=== PATIENT | male | born 1945 | race Caucasian/White ===

== ENCOUNTER → 2018-04-21 14:02 | Outpatient (CLI) | payer MEDICARE, SELFPAY ==
[2018-04-21 14:50] LABS: Add Manual Diff / Slide Review NO; Basophils Percent Auto 0.7 % (0-2); Eosinophils Percent Auto 5.9 % (2-4); Hematocrit 44.6 % (41-53); Hemoglobin 14.9 g/dL (13.5-17.5); Lymphocytes Percent Auto 18.2 % (25-40); Mean Corpuscular HGB Conc 33.3 % (30-36); Monocytes Percent Auto 10.8 % (3-14); Neutrophils Absolute Auto 4200 /uL (3000-5900); Neutrophils Percent Auto 64.4 % (50-75); Platelet Count 193 X10^3/uL (150-400); Red Blood Cell Count 4.79 X10^6/uL (4.5-5.9); Red Cell Distribution Width 14.6 % (11.6-14.8); White Blood Cell Count 6.6 X10^3/uL (4.5-11.0)
[2018-04-21 15:02] LABS: Hemoglobin A1C% w Est Avg Glu 6.7 % (4.0-6.0)
[2018-04-21 15:09] LABS: Cholesterol 177 mg/dL (140-199); HDL Cholesterol 51 mg/dL (40-60); LDL Cholesterol Calculated 102 mg/dL (<100); Triglycerides 120 mg/dL (35-150)
== END ==
PROVIDERS: Visit Provider Internal Medicine
DX: E78.5 Hyperlipidemia, unspecified (principal); Z86.39 Personal history of other endocrine, nutritional and metabolic disease; I10 Essential (primary) hypertension; Z12.5 Encounter for screening for malignant neoplasm of prostate; N40.1 Benign prostatic hyperplasia with lower urinary tract symptoms
CPT/HCPCS: 36415; 80061; 83036; 84153; 85025

== ENCOUNTER → 2018-07-15 12:08 | Outpatient (CLI) | payer MEDICARE, SELFPAY ==
--- NOTE | 2018-07-15 12:11 | DI.RAD.S_ITS ---
PROCEDURE: XR ELBOW RT MIN 3V INDICATIONS: fall 2 wks ago, still has pain TECHNIQUE: 3 views of the elbow were acquired. COMPARISON: None. FINDINGS: Bones: No fractures or dislocations. 4 mm ossification with well corticated margins is noted in the elbow joint concerning for intra-articular loose body. No suspicious bony lesions. Soft tissues: No elbow joint effusion. No suspicious soft tissue calcifications. IMPRESSION: Macro fracture acute Dictated by: Jasmyne Zamudio MD, PhD on 07/15/2018 at 12:50 Approved by: Jasmyne Zamudio MD, PhD on 07/15/2018 at 12:51
== END ==
PROVIDERS: Visit Provider Physician Assistant
DX: M25.521 Pain in right elbow (principal)
CPT/HCPCS: 73080

== ENCOUNTER → 2019-03-28 11:40 | Outpatient (CLI) | payer MEDICARE, SELFPAY ==
[2019-03-28 12:36] LABS: Add Manual Diff / Slide Review NO; Basophils Absolute Auto 0 /uL (0-100); Basophils Percent Auto 0.4 % (0-2); Eosinophils Absolute Auto 300 /uL (0-450); Hematocrit 43.4 % (41-53); Hemoglobin 14.3 g/dL (13.5-17.5); Lymphocytes Absolute Auto 1000 /uL (1100-4500); Lymphocytes Percent Auto 15.4 % (25-40); Mean Corpuscular Hemoglobin 31.3 PG (26-34); Mean Corpuscular Volume 95.1 fL (80-100); Monocytes Absolute Auto 900 /uL (0-900); Monocytes Percent Auto 13.5 % (3-14); Neutrophils Absolute Auto 4200 /uL (1500-7000); Neutrophils Percent Auto 65.7 % (50-75); Platelet Count 166 X10^3/uL (150-400); Red Blood Cell Count 4.57 X10^6/uL (4.5-5.9); Red Cell Distribution Width 14.8 % (11.6-14.8); White Blood Cell Count 6.5 X10^3/uL (4.5-11.0)
[2019-03-28 12:48] LABS: Hemoglobin A1C% w Est Avg Glu 6.5 % (4.0-6.0)
[2019-03-28 13:05] LABS: Alanine Aminotransferase 15 IU/L (<50); Albumin 4.2 g/dL (3.5-5.0); Albumin Globulin Ratio 1.6 (1.0-2.8); Alkaline Phosphatase 74 U/L (38-126); Aspartate Aminotransferase 19 IU/L (17-59); Bilirubin Total 0.9 mg/dL (0.2-1.3); Blood Urea Nitrogen 18 mg/dL (9-20); Calcium 9.2 mg/dL (8.4-10.2); Carbon Dioxide 28 mmol/L (22-32); Chloride 106 mmol/L (98-107); Estimated Glomerular Filt Rate 59.2 mL/min (>60); Globulin 2.6 g/dL (1.7-4.1); Glucose 139 mg/dL (80-110); HEMOLYSIS < 15 (0-50); Potassium 4.8 mmol/L (3.4-5.1); Sodium 143 mmol/L (137-145); Total Protein 6.8 g/dL (6.3-8.2)
== END ==
PROVIDERS: Visit Provider Internal Medicine
DX: Z00.00 Encounter for general adult medical examination without abnormal findings (principal)
CPT/HCPCS: 36415; 80053; 83036; 85025

== ENCOUNTER → 2019-05-31 13:00 | Outpatient (CLI) | payer MEDICARE, SELFPAY | PROVIDERS: Visit Provider Urology | DX: Z12.5 Encounter for screening for malignant neoplasm of prostate (principal); N40.1 Benign prostatic hyperplasia with lower urinary tract symptoms | CPT/HCPCS: 36415; 84153 ==

== ENCOUNTER → 2021-06-05 09:44 | Outpatient (CLI) | payer MEDICARE, SELFPAY ==
--- NOTE | 2021-06-05 09:47 | DI.RAD.S_ITS ---
PROCEDURE: XR CHEST 2V INDICATIONS: cough TECHNIQUE: 2 views of the chest were acquired. COMPARISON: [facility], , CHEST 2 VIEW, 05/19/2012, 15:56. FINDINGS: Surgical changes and devices: None. Lungs and pleura: Focal opacity noted the periphery of the right upper lobe. No pleural effusions or pneumothorax. Mediastinum: Mediastinal contours are normal. Heart size is normal. Bones and chest wall: No suspicious bony abnormalities. Soft tissues appear unremarkable. IMPRESSION: Right upper lobe pneumonia. Dictated by: Jasmyne Zamudio MD, PhD on 06/05/2021 at 15:12 Approved by: Jasmyne Zamudio MD, PhD on 06/05/2021 at 15:12
== END ==
PROVIDERS: Referring Provider Nurse Practitioner Family; Visit Provider Nurse Practitioner Family
DX: R05.9 Cough, unspecified (principal)
CPT/HCPCS: 71046

== ENCOUNTER → 2021-06-24 12:14 | Outpatient (CLI) | payer MEDICARE, SELFPAY ==
[2021-06-24 13:31] LABS: COVID19 -Nasal RAPID Negative (Negative)
== END ==
PROVIDERS: Visit Provider Physician Assistant
DX: Z20.822 Contact with and (suspected) exposure to COVID-19 (principal)
CPT/HCPCS: 87635

== ENCOUNTER 2021-06-24 12:23 | Inpatient (IN) | payer MEDICARE, SELFPAY ==
[2021-06-24] VITALS (20 sets, daily range): BP systolic 101–133; BP diastolic 58–72; PULSE 53–81; RESP 16–22; TEMP 36.2–36.7; O2SAT 87–97; BMI 31.8
--- NOTE | 2021-06-24 12:52 | DI.RAD.S_ITS ---
PROCEDURE: XR CHEST 1V INDICATIONS: Flu like symptoms TECHNIQUE: One view of the chest was acquired. COMPARISON: [facility], CR, XR CHEST 2V, 06/05/2021, 9:41. FINDINGS: Surgical changes and devices: None. Lungs and pleura: Low lung volumes are seen bilaterally. Patchy airspace opacities are seen throughout both lungs that appear slightly more prominent when compared to the prior radiographs. No pleural effusion or pneumothorax. Mediastinum: Cardiomediastinal contours are within normal limits given portable technique.. Bones and chest wall: No suspicious bony lesions. Overlying soft tissues appear unremarkable. IMPRESSION: Mild bilateral patchy airspace opacities appear worse when compared to the prior radiographs, although findings may be exaggerated by low lung volumes. Findings are suspicious for bilateral pneumonia, including with viral agents such as COVID-19. Dictated by: Arun Lopez M.D. on 06/24/2021 at 13:16 Approved by: Arun Lopez M.D. on 06/24/2021 at 13:18
[2021-06-24 13:21] LABS: Add Manual Diff / Slide Review NO; Basophils Absolute Auto 0 /uL (0-100); Basophils Percent Auto 0.4 % (0-2); Eosinophils Absolute Auto 400 /uL (0-450); Eosinophils Percent Auto 3.4 % (2-4); Hematocrit 39.5 % (41-53); Hemoglobin 12.7 g/dL (13.5-17.5); Lymphocytes Absolute Auto 900 /uL (1100-4500); Lymphocytes Percent Auto 8.6 % (25-40); Mean Corpuscular HGB Conc 32.2 % (30-36); Mean Corpuscular Hemoglobin 30.1 PG (26-34); Mean Corpuscular Volume 93.4 fL (80-100); Monocytes Absolute Auto 900 /uL (0-900); Monocytes Percent Auto 7.9 % (3-14); Neutrophils Absolute Auto 8800 /uL (1500-7000); Neutrophils Percent Auto 79.7 % (50-75); Platelet Count 258 X10^3/uL (150-400); Red Blood Cell Count 4.24 X10^6/uL (4.5-5.9); Red Cell Distribution Width 14.5 % (11.6-14.8); White Blood Cell Count 11.1 X10^3/uL (4.5-11.0)
--- NOTE | 2021-06-24 13:33 | PC.NURSE ---
Per charge nurse's instruction, patient was placed on 2L of O2.
[2021-06-24 13:43] LABS: Alanine Aminotransferase 13 IU/L (<50); Albumin 4.2 g/dL (3.5-5.0); Alkaline Phosphatase 65 U/L (38-126); Aspartate Aminotransferase 21 IU/L (17-59); Bilirubin Total 0.7 mg/dL (0.2-1.3); Blood Urea Nitrogen 17 mg/dL (9-20); Calcium 9.4 mg/dL (8.4-10.2); Carbon Dioxide 24 mmol/L (22-32); Chloride 110 mmol/L (98-107); Estimated Glomerular Filt Rate 58.1 mL/min (>60); Globulin 4.2 g/dL (1.7-4.1); Glucose 129 mg/dL (80-110); HEMOLYSIS 43 (0-50); Lactate (Lactic Acid) 1.6 mmol/L (0.7-2.1); Potassium 4.6 mmol/L (3.4-5.1); Sodium 143 mmol/L (137-145); Total Protein 8.4 g/dL (6.3-8.2)
[2021-06-24 13:51] LABS: NT-proBNP (BNP-Adult 18+) 225 pg/mL (<450)
--- NOTE | 2021-06-24 14:26 | ED_ITS ---
HPI - General Adult General Chief complaint: Upper Respiratory Symptoms Stated complaint: SOB HEAVYNESS OF CHEST LOTS OF COUGH Time Seen by Provider: 06/24/21 12:41 Source: patient Mode of arrival: Ambulatory History of Present Illness HPI narrative: Patient is a 76-year-old male. No reported history of underlying lung disease. States that he gets ?bronchitis ?just about every year. Over the past several weeks he started to have some cough and heaviness in his chest and some shortness of breath. He thought that he had bronchitis once again. Went to walk-in clinic. Was started on antibiotic. He is unsure what antibiotic he was given however he took it as directed. He felt like he improved somewhat but then as he stop the antibiotic his symptoms started to return again. He went to the walk-in clinic once again. Was found that he was hypoxic. And was sent to the emergency department for further evaluation. He denies any lower extremity swelling. No fevers. Does have some chest pressure. Has a nonproductive cough. No recent travel. Related Data Home Medications Medication Instructions Recorded Confirmed allopurinol 300 mg tablet 300 mg PO QDAY tab 07/15/18 06/24/21 atenolol 25 mg tablet 25 mg PO DAILY 07/15/18 06/24/21 simvastatin 20 mg tablet 20 mg PO BEDTIME 07/15/18 06/24/21 tamsulosin 0.4 mg capsule 0.4 mg PO DAILY 07/15/18 06/24/21 Previous Rx's Medication Instructions Recorded metformin 500 mg tablet,extended 1,000 mg PO QDAY #30 tab 07/23/17 release 24 hr (Glucophage XR) benzonatate 100 mg capsule 100 mg PO BID PRN #20 cap 06/05/21 Allergies Allergy/AdvReac Type Severity Reaction Status Date / Time No Known Drug Allergies Allergy Verified 06/24/21 12:38 Review of Systems Constitutional Constitutional: Denies fever(s) and Denies headache(s) ENT Ears, Nose, Mouth, and Throat: Denies headache(s) Cardiovascular Cardiovascular: Reports as per HPI and Reports system reviewed and no additional complaints, except as documented Respiratory Respiratory: Reports as per HPI and Reports system reviewed and no additional complaints, except as documented Gastrointestinal Gastrointestinal: Denies abdominal pain, Denies nausea and Denies vomiting Musculoskeletal Musculoskeletal: Reports system reviewed and no additional complaints, except as documented Integumentary/Breasts Skin/Breast: Reports system reviewed and no additional complaints, except as documented Neurologic Neurologic: Denies headache(s) Hematologic/Lymphatic On Anticoagulants: No Patient History Medical History Shortness of breath Social History household members: significant other Smoking Status: Former smoker alcohol intake: current Smoking Status: Former smoker alcohol intake frequency: 0-2 drinks per day Substance Use Type: does not use Exam Initial Vital Signs Initial Vital Signs: Vital Signs Temperature 97.1 F L 06/24/21 12:25 Pulse Rate 64 06/24/21 12:25 Respiratory Rate 18 06/24/21 12:25 Blood Pressure 133/61 06/24/21 12:25 Pulse Oximetry 95 06/24/21 12:25 HENMT Head: normal to inspection and normocephalic Resp Effort & Inspection: normal respiratory effort and tachypneic Auscultation: clear to auscultation bilaterally Cardio Rate: regular rate Rhythm: regular rhythm GI Inspection: normal to inspection Skin General: no rashes or lesions noted Neuro General: patient alert, patient awake, patient oriented x3 and moves all extremities Extrem General: no pedal edema Psych Appearance: grossly normal and well kempt Course Orders Ordered: ED Orders 06/24/21 12:39 EKG-12 Lead Stat 06/24/21 12:51 Measure peak expiratory flow ONCE RT Consult Eval and Treat Now 06/24/21 12:52 XR chest 1V Stat 06/24/21 13:13 Complete Blood Count AUTO DIFF Stat Comprehensive Metabolic Panel Stat Lactate (Lactic Acid) Stat NT-proBNP (BNP-Adult 18+) Stat Procalcitonin Stat Troponin & CK Cardiac Panel Stat 06/24/21 14:38 CT angio chest PE protocol Stat 06/24/21 16:05 Respiratory Panel (Film Array) Stat 06/24/21 17:00 Blood Culture Stat Discontinued Medications Azithromycin 500 mg/ Dextrose 250 mls @ 250 mls/hr IV NOW ONE Stop: 06/24/21 16:27 Last Admin: 06/24/21 18:12 Dose: 250 mls/hr Documented by: [email or web address] Ceftriaxone Sodium 1,000 mg/ (Sodium Chloride) 100 mls @ 200 mls/hr IV NOW ONE Stop: 06/24/21 16:51 Last Infusion: 06/24/21 18:07 Dose: 200 mls/hr Documented by: Infusion: 06/24/21 17:39 Dose: 0 mls/hr Documented by: Admin: 06/24/21 17:13 Dose: 200 mls/hr Documented by: TAMARA Vital Signs Vital signs: Vital Signs - 8 hr 06/24/21 12:25 06/24/21 12:59 06/24/21 13:00 Temperature 97.1 F L Pulse Rate 64 66 66 Respiratory Rate 18 Blood Pressure 133/61 Pulse Oximetry 95 91 91 06/24/21 13:02 06/24/21 13:30 06/24/21 14:00 Temperature Pulse Rate 66 63 59 L Respiratory Rate Blood Pressure 105/58 L 115/61 101/58 L Pulse Oximetry 91 94 96 06/24/21 14:30 06/24/21 15:04 06/24/21 15:05 Temperature Pulse Rate 61 64 63 Respiratory Rate 22 22 Blood Pressure 109/68 118/59 L Pulse Oximetry 96 87 L 88 L 06/24/21 15:10 06/24/21 15:23 06/24/21 15:30 Temperature Pulse Rate 61 53 L Respiratory Rate 22 Blood Pressure 115/69 114/70 Pulse Oximetry 95 97 97 06/24/21 16:00 06/24/21 16:01 06/24/21 16:30 Temperature Pulse Rate 73 68 64 Respiratory Rate 22 Blood Pressure 118/68 129/72 Pulse Oximetry 95 95 96 Medical Decision Making Lab Data Lab results reviewed: Yes I reviewed the patient's lab results. Result diagrams: 06/24/21 13:13 06/24/21 13:13 Labs: Lab Results 06/24/21 06/24/21 06/24/21 Range/Units 13:13 13:13 13:13 WBC 11.1 H (4.5-11.0) X10^3/uL RBC 4.24 L (4.5-5.9) X10^6/uL Hgb 12.7 L (13.5-17.5) g/dL Hct 39.5 L (41-53) % MCV 93.4 (80-100) fL MCH 30.1 (26-34) PG MCHC 32.2 (30-36) % RDW 14.5 (11.6-14.8) % Plt Count 258 (150-400) X10^3/uL Neut % (Auto) 79.7 H (50-75) % Lymph % (Auto) 8.6 L (25-40) % [place] % (Auto) 7.9 (3-14) % Eos % (Auto) 3.4 (2-4) % Baso % (Auto) 0.4 (0-2) % Neut # (Auto) 8800 H (3532-5969) /uL Lymph # (Auto) 900 L (8496-7139) /uL [place] # (Auto) 900 (0-900) /uL Eos # (Auto) 400 (0-450) /uL Baso # (Auto) 0 (0-100) /uL Sodium 143 (137-145) mmol/L Potassium 4.6 (3.4-5.1) mmol/L Chloride 110 H (98-107) mmol/L Carbon Dioxide 24 (22-32) mmol/L BUN 17 (9-20) mg/dL Creatinine 1.21 (0.66-1.25) mg/dL Estimated GFR 58.1 L (>60) mL/min BUN/Creatinine Ratio 14.0 (6-22) Glucose 129 H (80-110) mg/dL Lactate (0.7-2.1) mmol/L Calcium 9.4 (8.4-10.2) mg/dL Total Bilirubin 0.7 (0.2-1.3) mg/dL AST 21 (17-59) IU/L ALT 13 (<50) IU/L Alkaline Phosphatase 65 (38-126) U/L Total Creatine Kinase (55-170) U/L CK-MB (CK-2) CK-MB (CK-2) Rel Index Troponin I (0.01-0.034) ng/mL NT-Pro-B Natriuret Pep 225 (<450) pg/mL Total Protein 8.4 H (6.3-8.2) g/dL Albumin 4.2 (3.5-5.0) g/dL Globulin 4.2 H (1.7-4.1) g/dL Albumin/Globulin Ratio 1.0 (1.0-2.8) Procalcitonin (<0.5) ng/mL Chlamy pneumoniae PCR (Not Detect) Adenovirus (PCR) (Not Detect) B. pertussis DNA (PCR) (Not Detecte) B.parapertussis DNA PCR (Not Detecte) Coronavirus OC43 (PCR) (Not Detect) Coronavirus HKU1 (PCR) (Not Detect) Coronavirus 229E (PCR) (Not Detect) SARS-CoV-2 (PCR) Cancelled Coronavirus NL63 (PCR) (Not Detect) Human Metapneumovir PCR (Not Detect) Influenza Type A (PCR) (Not Detect) Influenza Type B (PCR) (Not Detect) M. pneumoniae (PCR) (Not Detect) Parainfluenza 1 (PCR) (Not Detect) Parainfluenza 2 (PCR) (Not Detect) Parainfluenza 3 (PCR) (Not Detect) Parainfluenza 4 (PCR) (Not Detect) RSV (PCR) (Not Detect) Entero/Rhino (PCR) (Not Detect) 06/24/21 06/24/21 06/24/21 Range/Units 13:13 13:13 13:13 WBC (4.5-11.0) X10^3/uL RBC (4.5-5.9) X10^6/uL Hgb (13.5-17.5) g/dL Hct (41-53) % MCV (80-100) fL MCH (26-34) PG MCHC (30-36) % RDW (11.6-14.8) % Plt Count (150-400) X10^3/uL Neut % (Auto) (50-75) % Lymph % (Auto) (25-40) % [place] % (Auto) (3-14) % Eos % (Auto) (2-4) % Baso % (Auto) (0-2) % Neut # (Auto) (3682-4337) /uL Lymph # (Auto) (0956-0774) /uL [place] # (Auto) (0-900) /uL Eos # (Auto) (0-450) /uL Baso # (Auto) (0-100) /uL Sodium (137-145) mmol/L Potassium (3.4-5.1) mmol/L Chloride (98-107) mmol/L Carbon Dioxide (22-32) mmol/L BUN (9-20) mg/dL Creatinine (0.66-1.25) mg/dL Estimated GFR (>60) mL/min BUN/Creatinine Ratio (6-22) Glucose (80-110) mg/dL Lactate 1.6 (0.7-2.1) mmol/L Calcium (8.4-10.2) mg/dL Total Bilirubin (0.2-1.3) mg/dL AST (17-59) IU/L ALT (<50) IU/L Alkaline Phosphatase (38-126) U/L Total Creatine Kinase 85 (55-170) U/L CK-MB (CK-2) TNP CK-MB (CK-2) Rel Index TNP Troponin I < 0.012 (0.01-0.034) ng/mL NT-Pro-B Natriuret Pep (<450) pg/mL Total Protein (6.3-8.2) g/dL Albumin (3.5-5.0) g/dL Globulin (1.7-4.1) g/dL Albumin/Globulin Ratio (1.0-2.8) Procalcitonin 0.08 (<0.5) ng/mL Chlamy pneumoniae PCR (Not Detect) Adenovirus (PCR) (Not Detect) B. pertussis DNA (PCR) (Not Detecte) B.parapertussis DNA PCR (Not Detecte) Coronavirus OC43 (PCR) (Not Detect) Coronavirus HKU1 (PCR) (Not Detect) Coronavirus 229E (PCR) (Not Detect) SARS-CoV-2 (PCR) Coronavirus NL63 (PCR) (Not Detect) Human Metapneumovir PCR (Not Detect) Influenza Type A (PCR) (Not Detect) Influenza Type B (PCR) (Not Detect) M. pneumoniae (PCR) (Not Detect) Parainfluenza 1 (PCR) (Not Detect) Parainfluenza 2 (PCR) (Not Detect) Parainfluenza 3 (PCR) (Not Detect) Parainfluenza 4 (PCR) (Not Detect) RSV (PCR) (Not Detect) Entero/Rhino (PCR) (Not Detect) 06/24/21 Range/Units 16:05 WBC (4.5-11.0) X10^3/uL RBC (4.5-5.9) X10^6/uL Hgb (13.5-17.5) g/dL Hct (41-53) % MCV (80-100) fL MCH (26-34) PG MCHC (30-36) % RDW (11.6-14.8) % Plt Count (150-400) X10^3/uL Neut % (Auto) (50-75) % Lymph % (Auto) (25-40) % [place] % (Auto) (3-14) % Eos % (Auto) (2-4) % Baso % (Auto) (0-2) % Neut # (Auto) (2866-5282) /uL Lymph # (Auto) (2453-3201) /uL [place] # (Auto) (0-900) /uL Eos # (Auto) (0-450) /uL Baso # (Auto) (0-100) /uL Sodium (137-145) mmol/L Potassium (3.4-5.1) mmol/L Chloride (98-107) mmol/L Carbon Dioxide (22-32) mmol/L BUN (9-20) mg/dL Creatinine (0.66-1.25) mg/dL Estimated GFR (>60) mL/min BUN/Creatinine Ratio (6-22) Glucose (80-110) mg/dL Lactate (0.7-2.1) mmol/L Calcium (8.4-10.2) mg/dL Total Bilirubin (0.2-1.3) mg/dL AST (17-59) IU/L ALT (<50) IU/L Alkaline Phosphatase (38-126) U/L Total Creatine Kinase (55-170) U/L CK-MB (CK-2) CK-MB (CK-2) Rel Index Troponin I (0.01-0.034) ng/mL NT-Pro-B Natriuret Pep (<450) pg/mL Total Protein (6.3-8.2) g/dL Albumin (3.5-5.0) g/dL Globulin (1.7-4.1) g/dL Albumin/Globulin Ratio (1.0-2.8) Procalcitonin (<0.5) ng/mL Chlamy pneumoniae PCR Not detected (Not Detect) Adenovirus (PCR) Not detected (Not Detect) B. pertussis DNA (PCR) Not detected (Not Detecte) B.parapertussis DNA PCR Not detected (Not Detecte) Coronavirus OC43 (PCR) Not detected (Not Detect) Coronavirus HKU1 (PCR) Not detected (Not Detect) Coronavirus 229E (PCR) Not detected (Not Detect) SARS-CoV-2 (PCR) Not detected Coronavirus NL63 (PCR) Not detected (Not Detect) Human Metapneumovir PCR Not detected (Not Detect) Influenza Type A (PCR) Not detected (Not Detect) Influenza Type B (PCR) Not detected (Not Detect) M. pneumoniae (PCR) Not detected (Not Detect) Parainfluenza 1 (PCR) Not detected (Not Detect) Parainfluenza 2 (PCR) Not detected (Not Detect) Parainfluenza 3 (PCR) Not detected (Not Detect) Parainfluenza 4 (PCR) Not detected (Not Detect) RSV (PCR) Not detected (Not Detect) Entero/Rhino (PCR) Not detected (Not Detect) Imaging Data Chest x-ray: Radiologist's Impression: [address] [address] XRay Report Signed Patient: Gabe Knox MR#: [id number] : 1945 Acct:[id number] Age/Sex: 76 / M Date of Service: 06/24/21 Loc: Accession Number: [id number] ?? Procedure: XR chest 1V Ordering Provider: Marty Plunkett D.O. PROCEDURE:? XR CHEST 1V ? INDICATIONS:? Flu like symptoms ? TECHNIQUE:? One view of the chest was acquired.? ? COMPARISON:? [facility], , XR CHEST 2V, 06/05/2021, 9:41. ? FINDINGS:? ? Surgical changes and devices:? None.? ? Lungs and pleura:? Low lung volumes are seen bilaterally.? Patchy airspace opacities are seen throughout both lungs that appear slightly more prominent when compared to the prior radiographs.? No pleural effusion or pneumothorax. ? Mediastinum:? Cardiomediastinal contours are within normal limits given portable technique..? ? Bones and chest wall:? No suspicious bony lesions.? Overlying soft tissues appear unremarkable.? ? IMPRESSION:? Mild bilateral patchy airspace opacities appear worse when compared to the prior radiographs, although findings may be exaggerated by low lung volumes.? Findings are suspicious for bilateral pneumonia, including with viral agents such as COVID-19. ? ? Dictated by: Arun Lopez M.D. on 06/24/2021 at 13:16 ? ? Approved by: Arun Lopez M.D. on 06/24/2021 at 13:18?? CT scan - chest: Radiologist's Impression: [address] [address] [address] Scan Report Signed Patient: Gabe Knox MR#: [id number] : 1945 Acct:[id number] Age/Sex: 76 / M Date of Service: 06/24/21 Loc: ED Accession Number: [id number] ?? Procedure: CT angio chest PE protocol Ordering Provider: Marty Plunkett D.O. PROCEDURE:? CT ANGIO CHEST PE PROTOCOL ? INDICATIONS:? Chest pain, shortness of breath, tachycardia ? TECHNIQUE:? After the administration of intravenous contrast, 2 mm thick sections acquired from the pulmonary apices to the posterior costophrenic angles.? 3-dimensional maximum intensity projection (MIP) coronal and sagittal reformats were then acquired through the thorax.? For radiation dose reduction, the following was used:? automated exposure control, adjustment of mA and/or kV according to patient size.? ? COMPARISON:? [facility], CT, CT KUB, 02/12/2020, 11:54.? [facility], CR, XR CHEST 2V, 06/05/2021, 9:41. ? FINDINGS:? Image quality:? Excellent.? ? Pulmonary arteries:? Pulmonary arteries are normal in size, and demonstrate no intraluminal filling defects to suggest central pulmonary embolism.? ? Lungs and pleura:? Central airways patent.? Peripheral airways are diffusely narrowed.? There is extensive and bilateral subpleural reticulonodular pattern, scattered patchy peripheral ground-glass opacities and small consolidations, and irregular patchy consolidative change in the right middle lobe.? Additionally, there is considerable interstitial thickening in both lower lungs posteriorly.? There are a few punctate calcifications clustered in the right lateral lower lobe adjacent to a consolidation.? There are no pleural effusions or pneumothorax. ? Mediastinum:? The heart is mildly enlarged. Mild coronary calcification.? No pericardial effusion.? Right hilar adenopathy and borderline subcarinal and right bronchovascular lymph nodes.? Thoracic aorta is normal caliber with mild arch and descending aortic calcification.? Great vessels are normal. ? Bones and chest wall:? No suspicious bony lesions.? Ribs and thoracic spine appear intact throughout.? Thyroid gland is normal.? No axillary or supraclavicular adenopathy.? ? Abdomen:? 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 ? IMPRESSION:? ? 1. Bilateral mixed interstitial and alveolar opacities, most extensive in the right middle lobe and lower lobe.? Differential diagnosis includes acute viral or bacterial pneumonia as well as acute on chronic interstitial lung disease. ? 2. No pulmonary embolus. ? 3. Reactive right hilar and mediastinal adenopathy.? ? ? Dictated by: Akosua Redd M.D. on 06/24/2021 at 15:53 ? ? Approved by: Akosua Redd M.D. on 06/24/2021 at 16:02?? ECG Data Attestation: I personally reviewed and interpreted this ECG as follows: Prior ECG tracings: available for review Interpretation: Sinus rhythm Ventricular rate is 61 Normal QRS Normal QTC Occasional PVC No ST T wave changes MDM Narrative Medical decision making narrative: COVID is negative. Chest x-ray and CT scan of the chest concerning for pneumonia. No signs of pulmonary embolism. Procalcitonin negative. Patient hypoxic to the high 80s on room air but this improves with oxygen by nasal cannula and he states that he feels better with the oxygen. EKG unremarkable. Troponin is negative. Patient was given azithromycin Rocephin blood cultures were obtained. Discussed the case with Dr. Verdugo with internal medicine who will admit for further evaluation treatment. Discussed the need for admission with the patient and he expressed understanding and agreement as well. Discharge Plan Departure Patient Disposition: Admitted As Inpatient Clinical Impression: Pneumonia, Hypoxia Admit Date/Time: 06/24/21 16:59 Admit Provider: Jordi Verdugo
--- NOTE | 2021-06-24 14:38 | DI.CT.S_ITS ---
PROCEDURE: CT ANGIO CHEST PE PROTOCOL INDICATIONS: Chest pain, shortness of breath, tachycardia TECHNIQUE: After the administration of intravenous contrast, 2 mm thick sections acquired from the pulmonary apices to the posterior costophrenic angles. 3-dimensional maximum intensity projection (MIP) coronal and sagittal reformats were then acquired through the thorax. For radiation dose reduction, the following was used: automated exposure control, adjustment of mA and/or kV according to patient size. COMPARISON: [facility], CT, CT KUB, 02/12/2020, 11:54. [facility], CR, XR CHEST 2V, 06/05/2021, 9:41. FINDINGS: Image quality: Excellent. Pulmonary arteries: Pulmonary arteries are normal in size, and demonstrate no intraluminal filling defects to suggest central pulmonary embolism. Lungs and pleura: Central airways patent. Peripheral airways are diffusely narrowed. There is extensive and bilateral subpleural reticulonodular pattern, scattered patchy peripheral ground-glass opacities and small consolidations, and irregular patchy consolidative change in the right middle lobe. Additionally, there is considerable interstitial thickening in both lower lungs posteriorly. There are a few punctate calcifications clustered in the right lateral lower lobe adjacent to a consolidation. There are no pleural effusions or pneumothorax. Mediastinum: The heart is mildly enlarged. Mild coronary calcification. No pericardial effusion. Right hilar adenopathy and borderline subcarinal and right bronchovascular lymph nodes. Thoracic aorta is normal caliber with mild arch and descending aortic calcification. Great vessels are normal. Bones and chest wall: No suspicious bony lesions. Ribs and thoracic spine appear intact throughout. Thyroid gland is normal. No axillary or supraclavicular adenopathy. 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 IMPRESSION: 1. Bilateral mixed interstitial and alveolar opacities, most extensive in the right middle lobe and lower lobe. Differential diagnosis includes acute viral or bacterial pneumonia as well as acute on chronic interstitial lung disease. 2. No pulmonary embolus. 3. Reactive right hilar and mediastinal adenopathy. Dictated by: Akosua Redd M.D. on 06/24/2021 at 15:53 Approved by: Akosua Redd M.D. on 06/24/2021 at 16:02
[2021-06-24 14:49] LABS: Troponin I < 0.012 ng/mL (0.01-0.034)
[2021-06-24 14:52] LABS: Creatine Kinase 85 U/L (55-170)
[2021-06-24 16:19] LABS: Procalcitonin 0.08 ng/mL (<0.5)
[2021-06-24 17:04] LABS: Adenovirus Not Detected (Not Detect); B. parapertussis Not Detected (Not Detecte); Bordetella pertussis Not Detected (Not Detecte); Chlamydophila pneumoniae Not Detected (Not Detect); Coronavirus 229E Not Detected (Not Detect); Coronavirus HKU1 Not Detected (Not Detect); Coronavirus NL 63 Not Detected (Not Detect); Coronavirus OC43 Not Detected (Not Detect); Human Metapneumovirus Not Detected (Not Detect); Human Rhinovirus/Enterovirus Not Detected (Not Detect); Influenza A Not Detected (Not Detect); Influenza B Not Detected (Not Detect); Mycoplasma pneumoniae Not Detected (Not Detect); Parainfluenza Virus 1 Not Detected (Not Detect); Parainfluenza Virus 2 Not Detected (Not Detect); Parainfluenza Virus 3 Not Detected (Not Detect); Parainfluenza Virus 4 Not Detected (Not Detect); Respiratory Syncytial Virus Not Detected (Not Detect); SARS- CoV-2 Not Detected (Not Detecte)
[2021-06-24] MEDS: cefTRIAXone 1,000 MG in SODIUM CHLORIDE 0.9% 100 ML 200 ML IV (17:13)
[2021-06-24] MEDS: AZITHROMYCIN 500 MG in DEXTROSE 5% IN WATER 250 ML IV (18:12)
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
[2021-06-24] MEDS: ATORVASTATIN 20 MG TABLET 10 MG PO (21:12)
[2021-06-25] VITALS (7 sets, daily range): BP systolic 102–113; BP diastolic 62–70; PULSE 66–74; RESP 16–18; TEMP 36.2–36.6; O2SAT 87–97
--- NOTE | 2021-06-25 00:38 | PC.NURSE ---
2400: at HS when he put his HOB down flat and changed to home cpap: desat several times to 87% RT came to assess, added o2 bleedin to his cpap, o2 sats up to 90%. brought him IS - he was able to do a few but needed instructions for each breath, i dont want to do this. I'm not going to do this unless youre telling me to. reluctant to continue IS. was able to cough x 1 really good, non-productive. 0030: desat to 88%, CPOX alarming. call to RT, she instructed this RN to increase o2 to 6lpm. 0100: sats remaining consistent at 90-92%.
[2021-06-25 06:58] LABS: BUN Creatinine Ratio 14.9 (6-22); Blood Urea Nitrogen 18 mg/dL (9-20); Calcium 8.9 mg/dL (8.4-10.2); Carbon Dioxide 29 mmol/L (22-32); Chloride 110 mmol/L (98-107); Estimated Glomerular Filt Rate 58.1 mL/min (>60); Glucose 129 mg/dL (80-110); Magnesium 2.2 mg/dL (1.6-2.3); Sodium 141 mmol/L (137-145)
[2021-06-25 06:59] LABS: HEMOLYSIS 65 (0-50); Hematocrit 35.9 % (41-53); Hemoglobin 11.8 g/dL (13.5-17.5); Mean Corpuscular HGB Conc 32.9 % (30-36); Mean Corpuscular Hemoglobin 30.6 PG (26-34); Platelet Count 237 X10^3/uL (150-400); Red Blood Cell Count 3.86 X10^6/uL (4.5-5.9); Red Cell Distribution Width 14.4 % (11.6-14.8); White Blood Cell Count 10.8 X10^3/uL (4.5-11.0)
[2021-06-25 07:00] LABS: Potassium 4.7 mmol/L (3.4-5.1)
[2021-06-25 07:02] LABS: Add Manual Diff / Slide Review YES
[2021-06-25 07:23] LABS: Neutrophils Absolute Manual 8100 /uL (3000-5900); Total Cells Counted 100
[2021-06-25 07:24] LABS: Anisocytosis 1+
--- NOTE | 2021-06-25 08:33 | PM.PN.1 ---
Subjective Subjective Interval history: Patient reports improvement in his breathing this morning. He does endorse a cough productive of white/yellow sputum. I encouraged him to expectorate as much as he can. We also discussed incentive spirometry use. He believes his CPAP that he wears at night needs cleaning, and that that might have contributed to his current pneumonia. Exam Vital Signs (past 8 hours): - 06/25/21 00:38 06/25/21 05:31 Temperature 97.1 F L Pulse Rate 71 Respiratory Rate 16 Blood Pressure 113/70 Pulse Oximetry 95 97 Oxygen Delivery Method CPAP Oxygen Flow Rate 6 Narrative Exam Narrative: Const Other: Patient sitting up in bed comfortably upon my entering the room, in no apparent acute distress. Eyes Other: No scleral icterus appreciated. Neck Other: No carotid bruits appreciated. Resp Other: Adventitious breath sounds appreciated to the RML/RLL, and otherwise good air exchange. Cardio Other: RRR. S1 and S2 heart sounds normal. No murmurs appreciated. No peripheral edema noted. GI Other: Soft, non-distended, non-tender, bowel sounds heard. Extrem Other: Palpable and bilaterally equal radial and dorsalis pedis pulses. Objective Labs Result Diagrams: 06/25/21 06:40 06/25/21 06:40 Labs: Laboratory Results - last 24 hr 06/24/21 06/24/21 06/24/21 13:13 13:13 13:13 WBC 11.1 H RBC 4.24 L Hgb 12.7 L Hct 39.5 L MCV 93.4 MCH 30.1 MCHC 32.2 RDW 14.5 Plt Count 258 Neut % (Auto) 79.7 H Lymph % (Auto) 8.6 L [place] % (Auto) 7.9 Eos % (Auto) 3.4 Baso % (Auto) 0.4 Neut # (Auto) 8800 H Lymph # (Auto) 900 L [place] # (Auto) 900 Eos # (Auto) 400 Baso # (Auto) 0 Total Counted Seg Neutrophils % Lymphocytes % (Manual) Atypical Lymphs % Monocytes % (Manual) Eosinophils % (Manual) Neutrophils # (Manual) RBC Morphology Anisocytosis Sodium 143 Potassium 4.6 Chloride 110 H Carbon Dioxide 24 BUN 17 Creatinine 1.21 Estimated GFR 58.1 L BUN/Creatinine Ratio 14.0 Glucose 129 H Lactate Calcium 9.4 Magnesium Total Bilirubin 0.7 AST 21 ALT 13 Alkaline Phosphatase 65 Total Creatine Kinase CK-MB (CK-2) CK-MB (CK-2) Rel Index Troponin I NT-Pro-B Natriuret Pep 225 Total Protein 8.4 H Albumin 4.2 Globulin 4.2 H Albumin/Globulin Ratio 1.0 Procalcitonin Chlamy pneumoniae PCR Adenovirus (PCR) B. pertussis DNA (PCR) B.parapertussis DNA PCR Coronavirus OC43 (PCR) Coronavirus HKU1 (PCR) Coronavirus 229E (PCR) SARS-CoV-2 (PCR) Cancelled Coronavirus NL63 (PCR) Human Metapneumovir PCR Influenza Type A (PCR) Influenza Type B (PCR) M. pneumoniae (PCR) Parainfluenza 1 (PCR) Parainfluenza 2 (PCR) Parainfluenza 3 (PCR) Parainfluenza 4 (PCR) RSV (PCR) Entero/Rhino (PCR) 06/24/21 06/24/21 06/24/21 13:13 13:13 13:13 WBC RBC Hgb Hct MCV MCH MCHC RDW Plt Count Neut % (Auto) Lymph % (Auto) [place] % (Auto) Eos % (Auto) Baso % (Auto) Neut # (Auto) Lymph # (Auto) [place] # (Auto) Eos # (Auto) Baso # (Auto) Total Counted Seg Neutrophils % Lymphocytes % (Manual) Atypical Lymphs % Monocytes % (Manual) Eosinophils % (Manual) Neutrophils # (Manual) RBC Morphology Anisocytosis Sodium Potassium Chloride Carbon Dioxide BUN Creatinine Estimated GFR BUN/Creatinine Ratio Glucose Lactate 1.6 Calcium Magnesium Total Bilirubin AST ALT Alkaline Phosphatase Total Creatine Kinase 85 CK-MB (CK-2) TNP CK-MB (CK-2) Rel Index TNP Troponin I < 0.012 NT-Pro-B Natriuret Pep Total Protein Albumin Globulin Albumin/Globulin Ratio Procalcitonin 0.08 Chlamy pneumoniae PCR Adenovirus (PCR) B. pertussis DNA (PCR) B.parapertussis DNA PCR Coronavirus OC43 (PCR) Coronavirus HKU1 (PCR) Coronavirus 229E (PCR) SARS-CoV-2 (PCR) Coronavirus NL63 (PCR) Human Metapneumovir PCR Influenza Type A (PCR) Influenza Type B (PCR) M. pneumoniae (PCR) Parainfluenza 1 (PCR) Parainfluenza 2 (PCR) Parainfluenza 3 (PCR) Parainfluenza 4 (PCR) RSV (PCR) Entero/Rhino (PCR) 06/24/21 06/25/21 06/25/21 16:05 06:40 06:40 WBC 10.8 RBC 3.86 L Hgb 11.8 L Hct 35.9 L MCV 93.0 MCH 30.6 MCHC 32.9 RDW 14.4 Plt Count 237 Neut % (Auto) Not Reportable Lymph % (Auto) Not Reportable [place] % (Auto) Not Reportable Eos % (Auto) Not Reportable Baso % (Auto) Not Reportable Neut # (Auto) Lymph # (Auto) Not Reportable [place] # (Auto) Not Reportable Eos # (Auto) Baso # (Auto) Not Reportable Total Counted 100 Seg Neutrophils % 75.0 H Lymphocytes % (Manual) 11.0 L Atypical Lymphs % 1.0 H Monocytes % (Manual) 9.0 Eosinophils % (Manual) 4.0 Neutrophils # (Manual) 8100 H RBC Morphology Not Reportable Anisocytosis 1+ H Sodium 141 Potassium 4.7 Chloride 110 H Carbon Dioxide 29 BUN 18 Creatinine 1.21 Estimated GFR 58.1 L BUN/Creatinine Ratio 14.9 Glucose 129 H Lactate Calcium 8.9 Magnesium 2.2 Total Bilirubin AST ALT Alkaline Phosphatase Total Creatine Kinase CK-MB (CK-2) CK-MB (CK-2) Rel Index Troponin I NT-Pro-B Natriuret Pep Total Protein Albumin Globulin Albumin/Globulin Ratio Procalcitonin Chlamy pneumoniae PCR Not detected Adenovirus (PCR) Not detected B. pertussis DNA (PCR) Not detected B.parapertussis DNA PCR Not detected Coronavirus OC43 (PCR) Not detected Coronavirus HKU1 (PCR) Not detected Coronavirus 229E (PCR) Not detected SARS-CoV-2 (PCR) Not detected Coronavirus NL63 (PCR) Not detected Human Metapneumovir PCR Not detected Influenza Type A (PCR) Not detected Influenza Type B (PCR) Not detected M. pneumoniae (PCR) Not detected Parainfluenza 1 (PCR) Not detected Parainfluenza 2 (PCR) Not detected Parainfluenza 3 (PCR) Not detected Parainfluenza 4 (PCR) Not detected RSV (PCR) Not detected Entero/Rhino (PCR) Not detected PFSH Medical History Shortness of breath Social History household members: significant other Smoking Status: Former smoker alcohol intake: current Assessment & Plan Assessment & Plan narrative: Assessment: 1. Community-acquired pneumonia2. ELADIA on CPAP? 3. Non-insulin dependent DM II 4. Hypertension 5. Hyperlipidemia 6. Gout Plan: 1. Will start IV ceftriaxone and IV azithromycin (started on Jun 24). Blood cultures pending. COVID, influenza negative. 2. Patient reports adherence to CPAP at home. However, he believes it needs cleaning. He thinks it might have contributed to problem 1. 3. Will start low-intensity insulin sliding scale inpatient. 4. Will continue home atenolol 25 mg daily and lisinopril 5 mg daily. 5. Will continue home atorvastatin 20 mg daily. 6. Will continue home allopurinol 300 mg daily. VTE prophylaxis: Lovenox 40 mg daily Time Spent With Patient Critical Care time: I spent a total of [] minutes of critical care time on this patient's care today; this time is exclusive of procedural time.
[2021-06-25] MEDS: lisinopriL 5 MG TABLET PO (09:07)
[2021-06-25] MEDS: atenoloL 25 MG TABLET PO (09:07)
[2021-06-25] MEDS: allopurinoL 300 MG TABLET PO (09:08)
[2021-06-25] MEDS: ENOXAPARIN 40 MG/0.4 ML SYRINGE SUBCUT (09:08)
[2021-06-25] MEDS: SODIUM CHLORIDE 0.9% FLUSH 10 ML IV ×2 (09:10→21:13)
--- NOTE | 2021-06-25 13:07 | CM.DANOTE ---
Patient is a 76 yo male who was admitted on 06/24/21 for respiratory issues. Pt has MCR for insurance and his PCP is a rotating doctor at [facility]. EMR was reviewed. Per MD, pt admitted with community acquired pneumonia likely from not cleaning his home cpap for years. Pt on IV-Abx currently and per MD likely stable for d/c in next 1-2 days pending progress. SW met bedside with pt and explained role and he confirms he lives in [place] with his Sig Other Honey and is independent at baseline and drives and does not have home oxygen at baseline. Pt denies any hx of HH or SNF and states he drove himself to the hospital and vehicle in parking lot and plans to drive himself home. Pt denies any formal DPOA but Honey is informally his DPOA. Pt acknowledges that he is not as fit or healthy as I could be and could use to lose some weight but does not anticipate any needs at d/c and states if home oxygen recommended at d/c he will decline it being set up as he does not feel it is needed. Pt states he also does not have medication (Part D) coverage so pays for meds out of pocket but does not have concerns with financial ability to pay. Pt's primary pharmacy is [facility] in [place]. Plan: SW to follow for plan of d/c home with Sig Other and any further identified discharge planning needs. FEI Gordon Discharge Planning/Care Management CM Discharge Assessment Start: 06/25/21 13:05 Freq: Status: Active Protocol: Document 06/25/21 13:05 (Rec: 06/25/21 13:07 [id number]) Discharge Planning Assessment Assigned Christian Counselor FEI Hu DPOA/Assigned Designee Name informally sig mynor Méndez Contact Information [phone] Advance Directives? No Advance Directives on File No History Provided By Patient,Medical Record Has Patient been admitted in last 30 No days? Prior Living Arrangements House Household Members significant other Type of transporation used prior to Drives own vehicle admit Independent with ADL's Yes Is patient alert and oriented? Yes Caregiver for Another No Community Services used prior to Respiratory Therapy admission: Comment Pt has own home cpap Barriers to Discharge No Discharge Plan Home Transportation Arrangement Pt states his vehicle is in the parking lot Referrals Initiated None needed Additional Comment Pt states he will decline home oxygen if recommended, he does not feel he needs it. Whiteboard Updated in Patient Room with Yes name and ext. # of Christian Counselor Review Status In Process Please Provide Date Initial DC 06/25/21 Assessment Was Performed Next Review Type Continued Stay Review
[2021-06-25] MEDS: cefTRIAXone 2,000 MG in SODIUM CHLORIDE 0.9% 100 ML 200 ML IV (16:44)
--- NOTE | 2021-06-25 17:06 | PC.NURSE ---
Pt denies any discomfort T/O day, SpO2 94-98% on 4L HL right hand intact/patent. Independent in room Call light w/in reach, calls apprpriately for needs. Continue w/plan of care.
[2021-06-25] MEDS: AZITHROMYCIN 500 MG in DEXTROSE 5% IN WATER 250 ML IV (17:53)
[2021-06-25] MEDS: ATORVASTATIN 20 MG TABLET 10 MG PO (21:11)
[2021-06-26 01:45] VITALS: BP 99/40; PULSE 52; RESP 18; TEMP 36.6; O2SAT 90
[2021-06-26 02:44] VITALS: BP 127/77
[2021-06-26] MEDS: allopurinoL 300 MG TABLET PO (09:10)
[2021-06-26] MEDS: SODIUM CHLORIDE 0.9% FLUSH 10 ML IV (09:11)
[2021-06-26] MEDS: atenoloL 25 MG TABLET PO (09:11)
[2021-06-26 10:00] VITALS: BP 104/58; PULSE 76; RESP 18; TEMP 36.6; O2SAT 95
[2021-06-26 10:15] VITALS: O2SAT 88
[2021-06-26 12:05] VITALS: O2SAT 94
--- NOTE | 2021-06-26 13:27 | P.PN_ITS ---
Subjective Subjective Interval history: The patient reports feeling back to his baseline now. He says he doesn't want to wear oxygen at home, and so he's resistant to do the home RT oxygen evaluation. However, he agreed to have it done this morning after we spoke. The patient denies having any other complaints. Exam Vital Signs (past 8 hours): - 06/26/21 10:00 06/26/21 10:15 06/26/21 12:05 Temperature 97.9 F Pulse Rate 76 Respiratory Rate 18 Blood Pressure 104/58 L Pulse Oximetry 95 88 L 94 Oxygen Delivery Method Nasal Cannula Oxygen Flow Rate 2 Narrative Exam Narrative: Const Other: Patient sitting up in bed comfortably upon my entering the room, in no apparent acute distress. Eyes Other: No scleral icterus appreciated. Neck Other: No carotid bruits appreciated. Resp Other: Adventitious breath sounds appreciated to the RML/RLL, and otherwise good air exchange. Cardio Other: RRR. S1 and S2 heart sounds normal. No murmurs appreciated. No peripheral edema noted. GI Other: Soft, non-distended, non-tender, bowel sounds heard. Extrem Other: Palpable and bilaterally equal radial and dorsalis pedis pulses. Objective Labs Result Diagrams: 06/25/21 06:40 06/25/21 06:40 [facility] Medical History Shortness of breath Social History household members: significant other Smoking Status: Former smoker alcohol intake: current Assessment & Plan Assessment & Plan narrative: Assessment: 1. Community-acquired pneumonia 2. ELADIA on CPAP? 3. Non-insulin dependent DM II 4. Hypertension 5. Hyperlipidemia 6. Gout Plan: 1. Will start IV ceftriaxone and IV azithromycin (started on Jun 24). Blood cu ltures with no growth. COVID, influenza negative. Patient needs an RT home oxygen evaluation. 2. Patient reports adherence to CPAP at home. However, he believes it needs cleaning. He thinks it might have contributed to problem 1. 3. Will start low-intensity insulin sliding scale inpatient. 4. Will continue home atenolol 25 mg daily and lisinopril 5 mg daily. 5. Will continue home atorvastatin 20 mg daily. 6. Will continue home allopurinol 300 mg daily. VTE prophylaxis: Lovenox 40 mg daily Time Spent With Patient Critical Care time: I spent a total of [] minutes of critical care time on this patient's care today; this time is exclusive of procedural time.
--- NOTE | 2021-06-26 14:13 | RT ---
Had about a 10 minute talk about home and how it will setup and the works. End of the day patient agreed to buy a pulse oximeter at a local pharmacy for about 20 dollars. Told to seek emergency help if reading remains 85% and less after discharged. Dr Verdugo and EULALIO Kurtz notified and patient will be leaving here shorty on the room air .
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
== END 2021-06-26 16:59 | disposition home or self-care (01) | DRG 195 ==
LOC: ED 16:47 → AC 16:59
PROVIDERS: Admitting Provider Student in an Organized Health Care Education/Training Program; Emergency Provider Emergency Medicine; Referring Provider Emergency Medicine; Visit Provider Student in an Organized Health Care Education/Training Program
DX: J18.9 Pneumonia, unspecified organism (principal); G47.33 Obstructive sleep apnea (adult) (pediatric); R09.02 Hypoxemia; E11.9 Type 2 diabetes mellitus without complications; I10 Essential (primary) hypertension; E78.5 Hyperlipidemia, unspecified; M10.9 Gout, unspecified; Z79.84 Long term (current) use of oral hypoglycemic drugs; Z20.822 Contact with and (suspected) exposure to COVID-19; Z87.891 Personal history of nicotine dependence
CPT/HCPCS: 36415; 71045; 71275; 80048; 80053; 82550; 82962; 83605; 83735; 83880; 84145; 84484; 85007; 85025; 87040; 87633; 87635; 93005; 96365; 99285; J0696; J1650; J1815